=== PATIENT | female | born 1980 | race American Indian/Alaskan Native ===

== ENCOUNTER 2018-02-23 09:15 | Emergency (ER) | payer SELFPAY ==
[2018-02-23 09:45] VITALS: BP 127/91
[2018-02-23 10:11] LABS: HCG Qualitative,Urine Negative (Negative)
[2018-02-23] MEDS ORDERED: MOTRIN PO ONE (11:01)
--- NOTE | 2018-02-23 11:19 | Emergency Department Report ---
ED Upper Extremity Inj HPI - General Chief Complaint: Extremity Injury, Upper Stated Complaint: LFT HAND INJURY/PAIN Time Seen by Provider: 02/23/18 10:52 Source: patient Mode of arrival: Ambulatory Limitations: No Limitations - History of Present Illness Initial Comments: This is a 37-year-old female nontoxic, well nourished in appearance, no acute signs of distress presents to the ED with c/o of left ringer and 5th finger pain 1 week. Patient stated that she tried to break a fall and fell on her fingers. Patient denies any other trauma. Patient denies any numbness, tingling, fever, chills, nausea, vomiting, chest pain, shortness of breath, headache, stiff neck. Patient denies any joint swelling or joint redness. Patient denies decreased range of motion. Patient stated has decreased gait due to pain. Patient denies any allergies or significant past medical history. MD Complaint: Injury to:: left, finger -: week(s) (1) Other Extremity Injury: Fingers: Left Other Injuries: none Severity scale (0 -10): 8 Improves With: immobilization Worsens With: movement of extremity Context: fall Associated Symptoms: denies other symptoms. denies: weakness, numbness, neck pain, suspects foreign body, nausea/vomiting, heard/felt popping sensat - Related Data Previous Rx's Medication Instructions Recorded Last Taken Type Ibuprofen [Motrin] 600 mg PO Q8H PRN #30 tablet 02/23/18 Unknown Rx Allergies Allergy/AdvReac Type Severity Reaction Status Date / Time No Known Allergies Allergy Unverified 02/23/18 09:45 ED Review of Systems ROS: Stated complaint: LFT HAND INJURY/PAIN Other details as noted in HPI Constitutional: denies: chills, fever Eyes: denies: eye pain, eye discharge, vision change ENT: denies: ear pain, throat pain Respiratory: denies: cough, shortness of breath, wheezing Cardiovascular: denies: chest pain, palpitations Endocrine: no symptoms reported Gastrointestinal: denies: abdominal pain, nausea, diarrhea Genitourinary: denies: urgency, dysuria, discharge Musculoskeletal: denies: back pain, joint swelling, arthralgia Skin: denies: rash, lesions Neurological: denies: headache, weakness, paresthesias Psychiatric: denies: anxiety, depression Hematological/Lymphatic: denies: easy bleeding, easy bruising ED Past Medical Hx - Past Medical History Hx Psychiatric Treatment: No Hx HIV: No - Surgical History Additional Surgical History: kidney - Social History Smoking Status: Never Smoker Substance Use Type: None - Medications Home Medications: Home Medications Medication Instructions Recorded Confirmed Last Taken Type Ibuprofen [Motrin] 600 mg PO Q8H PRN #30 tablet 02/23/18 Unknown Rx ED Physical Exam - General Limitations: No Limitations General appearance: alert, in no apparent distress - Head Head exam: Present: atraumatic, normocephalic - Eye Eye exam: Present: normal appearance - ENT ENT exam: Present: mucous membranes moist - Neck Neck exam: Present: normal inspection - Respiratory Respiratory exam: Present: normal lung sounds bilaterally. Absent: respiratory distress - Cardiovascular Cardiovascular Exam: Present: regular rate, normal rhythm. Absent: systolic murmur, diastolic murmur, rubs, gallop - GI/Abdominal GI/Abdominal exam: Present: soft, normal bowel sounds - Extremities Exam Extremities exam: Present: normal inspection, full ROM, tenderness, normal capillary refill. Absent: joint swelling - Expanded Upper Extremity Exam Left General: Present: normal inspection Shoulder Exam: Present: normal inspection, full ROM. Absent: tenderness, swelling Upper Arm exam: Present: normal inspection, full ROM. Absent: tenderness, swelling Elbow exam: Present: normal inspection, full ROM. Absent: tenderness, swelling Forearm Wrist exam: Present: normal inspection, full ROM. Absent: tenderness, swelling Hand Wrist exam: Present: normal inspection, full ROM, tenderness. Absent: swelling, abrasion, laceration, ecchymosis, deformity, crepidus, dislocation, erythema, amputation, nail avulsion, subungual hematoma Neuro motor exam: Present: wrist extension intact, thumb opposition intact, thumb IP flexion intact, thumb adduction intact, fingers 2-5 abduction intact Neurosensory exam: Present: 2-point discrimination, radial nerve intact, ulnar nerve intact, median nerve intact Vascular: Present: vascular compromise, normal capillary refill, radial pulse, brachial pulse, ulnar pulse - Back Exam Back exam: Present: normal inspection, full ROM - Neurological Exam Neurological exam: Present: alert, oriented X3 - Psychiatric Psychiatric exam: Present: normal affect, normal mood - Skin Skin exam: Present: warm, dry, intact, normal color. Absent: rash ED Course Vital Signs 08/26/18 09:40 Temperature 98 F Pulse Rate 87 Respiratory 18 Rate Blood Pressure 127/91 O2 Sat by Pulse 98 Oximetry - Reevaluation(s) Reevaluation #1: 02/23/18 11:30 Patient is speaking in full sentences with no signs of distress noted. Reevaluation #2: 02/23/18 13:09 Patient just came back. Patient has been notified of the xray report about fracture. ED Medical Decision Making - Medical Decision Making This is a 37-year-old female that presents with left 4th middle phalanx. Patient is stable and was examined by me. X-ray has been obtained and dictated by the radiologist. When I came to tell patient the results with xray for fracture but was no where to be found. Patient was called multiple times to number listed but kept going to voicemail and voicemail was provided to come back to the ED with abnormal xray results. There is no joint swelling. No ecchymosis. no joint redness or swelling. Not warm to touch. No signs of cellulites present. Patient was instructed to RICE therapy prior to her leaving. Patient received Motrin for pain in the ED. Patient just came back. Patient has been notified of the xray report about fracture. PAtient receveid a football metal splint. Post splint assessment: neurovasular intact; normal cap refill <2 second; normal sensation; denies decreaed sensation; normal ROM of digits. Patient was referred to orthopedic follow-up. Critical care attestation.: If time is entered above; I have spent that time in minutes in the direct care of this critically ill patient, excluding procedure time. ED Disposition Clinical Impression: Finger fracture Qualifiers: Encounter type: initial encounter Finger: ring finger Fracture type: closed Phalanx: proximal Fracture alignment: nondisplaced Laterality: left Qualified Code(s): S62.645A - Nondisplaced fracture of proximal phalanx of left ring finger, initial encounter for closed fracture Disposition: - TO HOME OR SELFCARE Is pt being admited?: No Does the pt Need Aspirin: No Condition: Stable Instructions: Finger Fracture (ED), RICE Therapy (ED), Ibuprofen (By mouth) Additional Instructions: Follow-up with a orthopedic doctor in 3-5 days or if symptoms worsen and continue return to emergency room as soon as possible. Prescriptions: Ibuprofen [Motrin] 600 mg PO Q8H PRN #30 tablet PRN Reason: Pain Referrals: PRIMARY CARE, [Primary Care Provider] - 3-5 Days MALINI LU MD [Staff Physician] - 3-5 Days [facility] [Outside] - 3-5 Days
--- NOTE | 2018-02-23 12:36 | XRay Report ---
FINAL REPORT EXAM: XRAY HAND COMPLETE HISTORY: FELL AT WORK. PATIENT C/O OF PAIN NEAR 4TH AND 5TH DIGIT OF LEFT HAND. TECHNIQUE: Three views left hand. PRIORS: None currently available. FINDINGS: Slight cortical irregularity and lucency at the base of the 4th middle phalanx may represent a nondisplaced hairline fracture. There is no acute dislocation. Joints in anatomical position. No significant arthrosis. There is no cortical destruction to suggest osteomyelitis. There are no suspicious osseous lesions. There are no radiopaque foreign objects. IMPRESSION: Suspect small nondisplaced hairline fracture at the base of the 4th middle phalanx. Please correlate for point tenderness.
== END 2018-02-23 10:55 | disposition home or self-care (01) ==
LOC: ED 09:15
DX: S62.625A Displaced fracture of middle phalanx of left ring finger, initial encounter for closed fracture (principal); W18.30XA Fall on same level, unspecified, initial encounter; Y93.89 Activity, other specified; Y92.89 Other specified places as the place of occurrence of the external cause; Y99.8 Other external cause status
CPT/HCPCS: 81025; 99283

== ENCOUNTER 2018-03-18 10:31 | Emergency (ER) | payer OTHER ==
[2018-03-18 10:52] VITALS: BP 131/84
== END 2018-03-18 14:46 | disposition left against medical advice (07) ==
LOC: ED 10:31
DX: M79.645 Pain in left finger(s) (principal); Z53.21 Procedure and treatment not carried out due to patient leaving prior to being seen by health care provider